=== PATIENT | female | born 1985 | race Asian ===

== ENCOUNTER 2019-09-14 10:34 | Emergency (ER) | payer OTHER ==
[~2019-09-14] VITALS: Ht 162.6 cm; Wt 66.7 kg
[2019-09-14 10:45] VITALS: Ht 162.6 cm; Wt 66.7 kg
[2019-09-14 14:45] VITALS: BP 118/77
== END 2019-09-14 14:45 | disposition home or self-care (01) ==
LOC: ED 10:34
DX: S91.211A Laceration without foreign body of right great toe with damage to nail, initial encounter (principal); S90.121A Contusion of right lesser toe(s) without damage to nail, initial encounter; W22.8XXA Striking against or struck by other objects, initial encounter; Y93.89 Activity, other specified; Y92.89 Other specified places as the place of occurrence of the external cause; Y99.8 Other external cause status
CPT/HCPCS: J2001

== ENCOUNTER 2019-09-17 09:15 | Emergency (ER) | payer OTHER ==
[~2019-09-17] VITALS: Ht 157.5 cm; Wt 67.1 kg
[2019-09-17 09:19] VITALS: Ht 157.5 cm; Wt 67.1 kg
[2019-09-17 10:16] VITALS: BP 105/66
== END 2019-09-17 10:16 | disposition home or self-care (01) ==
LOC: ED 09:15
DX: S97.111D Crushing injury of right great toe, subsequent encounter (principal); S97.121D Crushing injury of right lesser toe(s), subsequent encounter; R21 Rash and other nonspecific skin eruption; X58.XXXD Exposure to other specified factors, subsequent encounter